=== PATIENT | male | born 1950 | race American Indian/Alaskan Native ===

== ENCOUNTER 2017-09-24 21:22 | Emergency (ER) | payer MEDICARE | END 2017-09-25 01:13 | disposition home or self-care (01) | LOC: D.ER 21:22 | DX: R51 Headache (principal); I10 Essential (primary) hypertension ==

== ENCOUNTER 2018-08-14 13:31 | Day surgery (SDC) | payer MEDICARE ==
[~2018-08-14] VITALS: Ht 180.3 cm; Wt 118.2 kg
--- NOTE | ~2018-08-14 | OP ---
PATIENT NAME: IMELDA JAMA MEDICAL RECORD: [id number] :50 [facility] DATE: SURGEON: KILEY AUGUSTINE MD DATE OF OPERATION: 08/14/2018 PROCEDURE: Colonoscopy with snare polypectomy, colonoscopy with hot biopsy, colonoscopy with Hemoclip placement to achieve hemostasis. SCOPE: An Olympus video colonoscope MEDICATIONS: Per TIVA. The patient received 510 mg of propofol for this procedure, O2 4 liters. The patient had a 30-minute withdrawal time, greater than 30 minutes for the procedure. INDICATION FOR THE PROCEDURE: Screening colonoscopy. FINDINGS: Informed consent was given. The patient was made comfortable with the above medications. After reaching an adequate level of sedation by slow IV push, the patient was placed on his left side. The rectal exam revealed good sphincter tone. No fissures or fistulas were appreciated. No external skin tags were seen. The colonoscope was advanced to the cecum where the ileocecal valve and appendiceal orifice were identified. On withdrawal of the scope, mucosa was carefully inspected. In the proximal ascending colon just out of the ileocecal valve area, the patient had a 1 cm polyp, which was seen and removed with hot biopsy forceps technique. This polyp was very hemorrhagic and 2 Hemoclips were placed to control the bleeding. He had an excellent response to the placement of both clips and the bleeding ceased. On additional withdrawal of the scope in the proximal transverse colon, a 1.5 cm polyp was seen and removed with a snare. No bleeding was noted after removal of this polyp by this method. We continued through the transverse colon and tissue appeared to be normal. On the left side of the colon, the patient had left-sided diverticulosis without diverticulitis to a moderate degree. On additional withdrawal of the scope into the area of the rectum, a 1.5 cm polyp was noted and this was also removed with a snare. We did have to touch. This polyp up a little bit with hot biopsy forceps as there was a little bleeding after removal of this polyp from a visible vessel. We did achieve hemostasis without any difficulty. Also, within the rectal vault near the anal opening in the distal rectum 2 small 0.5 cm polyps were ablated without difficulty. The patient also had moderate internal and external hemorrhoids. The scope was then withdrawn. It should be noticed that adhesions were noted mostly in the pelvic area. IMPRESSION: 1. Adhesions in the pelvic area. 2. Moderate left-sided diverticulosis without diverticulitis. 3. Polyp in the rectal vault 1.5 cm in size, removed with a snare, then this area was treated with hot biopsy forcep technique to further coagulate the area with a good result. 4. Two rectal polyps near the anal opening ablated. 5. Polyp in the proximal transverse colon 1.5 cm in size, removed with a snare with a good result. No bleeding. OPERATIVE REPORT [id number] IMELDA JAMA 6. Polyp in the proximal ascending colon right outside of the ileocecal valve, 1 cm in size, removed with hot biopsy forceps technique and after this 2 Hemoclips were placed on the visible vessel with an excellent result and no bleeding was noted after placement of the clips. PLAN: 1. No anti-inflammatory drugs for 14 days. 2. The patient is to start his Plavix in a few days to allow for more thorough hemostasis. 3. High fiber diet. 4. Diverticular diet. Also, the patient needs to avoid nuts, seeds, and popcorn. Probiotics will be recommended. TRANSINT:[id number] Voice Confirmation ID: [id number] DOCUMENT ID: [id number] KILEY AUGUSTINE MD CC: ANIKA WHITE and DUGLAS BRYAN [id number] DICTATION DATE: 08/14/18 1629 FRANCHISE MANAGER: 08/14/18 180 [facility] 08/14/18 [facility] [address] [place] [address]
[2018-08-14 14:13] LABS: HEMATOCRIT 45.5 % (42.0-54.0); HEMOGLOBIN 15.7 g/dL (13.5-17.5); MCH 31.7 pg (26.0-34.0); MCHC 34.5 g/dL (31.0-37.0); MCV 91.7 fL (80.0-100.0); RBC 4.96 10x6/uL (4.20-6.10); RDW 13.3 % (11.5-14.5); WBC 15.9 10x3/uL (4.8-10.8)
[2018-08-14 14:17] LABS: INR 1.04 (0.85-1.17); PROTIME 13.2 SECONDS (11.6-15.0)
[2018-08-14 14:18] LABS: APTT 26.9 SECONDS (22.8-39.4)
[2018-08-14] MEDS ORDERED: NORVASC10 MG PO (14:58)
[2018-08-14] MEDS ORDERED: ZETIA10 MG PO (14:59)
[2018-08-14] MEDS ORDERED: METOPROLOL TART50 MG PO (15:00)
[2018-08-14] MEDS ORDERED: ZYLOPRIM100 MG PO (15:01)
[2018-08-14] MEDS ORDERED: LOSARTAN/HCT TAB 50- ×2 (15:01→15:04)
[2018-08-14] MEDS ORDERED: PLAVIX75 MG PO (15:02)
[2018-08-14] MEDS ORDERED: ASPIRIN81 MG PO (15:02)
[2018-08-14] MEDS ORDERED: PROTONIX40 MG PO (15:02)
[2018-08-14] MEDS ORDERED: NITROSTAT0.4 MG SL (15:07)
[2018-08-14 15:15] VITALS: BP 134/76; Ht 180.3 cm; Wt 118.2 kg
== END 2018-08-14 17:30 | disposition home or self-care (01) ==
LOC: D.OPS 13:31
PROVIDERS: Anesthesiology
DX: Z12.11 Encounter for screening for malignant neoplasm of colon (principal); K57.30 Diverticulosis of large intestine without perforation or abscess without bleeding; K62.1 Rectal polyp; K63.5 Polyp of colon; Z01.812 Encounter for preprocedural laboratory examination